=== PATIENT | female | born 1950 | race Caucasian/White ===

== ENCOUNTER 2025-10-03 02:12 | Emergency (ER) | payer MEDICARE, MEDICAID ==
[~2025-10-03] VITALS: Ht 147.3 cm; Wt 81.8 kg
[2025-10-03] MEDS ORDERED: ELIQ2.5T PO (02:41)
[2025-10-03] MEDS ORDERED: OMEP40CA4 PO (02:42)
[2025-10-03] MEDS ORDERED: GABA-1172 PO (02:43)
[2025-10-03] MEDS ORDERED: CALCCHW19 PO (02:45)
[2025-10-03] MEDS ORDERED: BUSP30TA PO (02:45)
[2025-10-03] MEDS ORDERED: CEFD1CAP9 PO (02:49)
[2025-10-03] MEDS ORDERED: TRAZ1TAB11 PO (02:49)
[2025-10-03] MEDS ORDERED: LEXA1TAB2 PO (02:49)
[2025-10-03] MEDS ORDERED: PANT40TA29 PO (02:49)
[2025-10-03] MEDS ORDERED: ATOR1TAB19 PO (02:49)
[2025-10-03] MEDS ORDERED: AMLO1TAB24 PO (02:49)
[2025-10-03 08:50] VITALS: BP 135/78; TEMP 97.9; O2SAT 98
== END 2025-10-03 08:52 | disposition short-term general hospital (02) ==
LOC: M ED 02:12
DX: F10.129 Alcohol abuse with intoxication, unspecified (principal); Z79.01 Long term (current) use of anticoagulants; Z79.899 Other long term (current) drug therapy; Z88.2 Allergy status to sulfonamides; Z88.0 Allergy status to penicillin; Z88.5 Allergy status to narcotic agent; Z91.040 Latex allergy status